=== PATIENT | male | born 1995 | race Caucasian/White ===

== ENCOUNTER 2020-10-14 21:43 | Emergency (ER) | payer MEDICAID, SELFPAY ==
[2020-10-14 21:52] VITALS: BP 138/100; PULSE 109; RESP 18; TEMP 36.7; O2SAT 95; BMI 20.5
[2020-10-14 22:00] VITALS: BP 138/100; PULSE 109; RESP 18; TEMP 36.7; O2SAT 95
[2020-10-15] VITALS: RESP 15
[2020-10-15 00:37] LABS: Amphetamine Screen Urine Not Detected (Not Detect); Barbiturates, Urine Not Detected (Not Detect); Benzodiazepines Screen Urine Not Detected (Not Detect); Cannabinoid Screen Urine Not Detected (Not Detect); Cocaine Screen Urine Not Detected (Not Detect); Opiate Screen Urine POSITIVE (Not Detect); Phencyclidine Screen Urine Not Detected (Not Detect)
[2020-10-15 02:00] VITALS: RESP 15
[2020-10-15 04:00] VITALS: RESP 14
[2020-10-15 06:00] VITALS: RESP 14
--- NOTE | 2020-10-15 06:44 | ED_ITS ---
HPI - Psych General Chief Complaint: Psychiatric Symptoms Stated Complaint: SI Time Seen by Provider: 10/15/20 06:43 Source: patient Mode of arrival: ambulatory History of Present Illness HPI Narrative: This is a 25M with history of depression as a child and on medication, but has had no further medication or therapy. He denies any admissions for depression or prior suicidal thoughts. Patient states he has been progressively experiencing worsening depression until yesterday he fellt like he wanted to kill himself by jumping off of a bridge. He denies any inciting event or situation. Patient states he drinks alcohol and injects heroin. Related Data Allergies Allergy/AdvReac Type Severity Reaction Status Date / Time cephapirin [From Cefadyl] Allergy Unknown Verified 10/14/20 21:52 Review of Systems Review of Systems: Pertinent positives and negatives as stated in HPI and 10 pt ROS is otherwise negative. [facility] Past Medical History Source: nursing notes reviewed Medical History Anxiety Depression Social History Social History Alcohol intake: unknown Smoking Status: Unknown if ever smoked Use of substances other than those prescribed or required for medical reasons: Yes Substance Use Type: Heroin Advance Directives: No Physical Exam Vital Signs: Vital Signs: Last Vital Signs Temp 98.0 F 10/14/20 22:00 Pulse 109 H 10/14/20 22:00 Resp 14 10/15/20 06:00 BP 138/100 H 10/14/20 22:00 Pulse Ox 95 10/14/20 22:00 Body Mass Index 20.5 Reviewed all vital signs. GEN: NAD, well-nourished PULM: CTAB, no RRR CVS: RRR, no murmurs ABD: soft, non-tender, non-distended EXT: no edema or deformity PSYCH: Depressive mood, logical thought process Course Course Course Narrative: This is a 25M with history and clinical presentation consistent with depression and suicidal ideation. Signed out to Dr Conner with plan: f/u labs and BHN evaluation. MDM - Psych Restraints Face to Face Assessment: Face to Face Assessment: Current Situation: After assessment of the patient, a review of the pertinent medical record and a discussion with nursing staff, I feel the patient requires a restrain intervention. Reaction To: [] Medical Condition: [] Behavioral State: [] Continued Need: [] Lab Data Labs: Lab Results 10/15/20 Range/Units 00:00 Urine Opiates Screen POSITIVE H (Not Detect) Ur Barbiturates Screen Not Detected (Not Detect) Ur Phencyclidine Scrn Not Detected (Not Detect) Ur Amphetamines Screen Not Detected (Not Detect) U Benzodiazepines Scrn Not Detected (Not Detect) Urine Cocaine Screen Not Detected (Not Detect) U Marijuana (THC) Screen Not Detected (Not Detect)
--- NOTE | 2020-10-15 06:48 | PC.NURSE ---
[facility] received the fax
--- NOTE | 2020-10-15 07:29 | PC.NURSE ---
called n to see when they could come geraldine tang stated mid to late morning
[2020-10-15] MEDS: Nicotine 14 MG PATCH.TD24 TRANSDERMA (08:30)
[2020-10-15 11:27] VITALS: BP 122/88; PULSE 100
[2020-10-15] MEDS: cloNIDine HCL 0.1 MG TABLET PO (11:27)
--- NOTE | 2020-10-15 13:59 | MHC.RECOVSUP ---
? Reason for consult:Continuity of care o Current location: [address] o Identified substance use concern: Heroin - Withdrawal - Support ? Intervention o MAT started or to be started o Community resources provided o Harm reduction discussion ? Plan: o Referral to [facility] o Follow up tomorrow o Patient to follow up with [facility] after discharge ? Additional information: Discussed at length MAT and how he would be a good canidate for it. Spoke to the [facility] and they were going to try to get him [facility] here today. After he obtains [facility] he'll be referred upstairs.
[2020-10-15] MEDS: Buprenorphine/Naloxone 2/0.5mg FILM 1 FILM SUBLINGUAL (14:26)
--- NOTE | 2020-10-15 14:49 | MHC.RECOVRN ---
Recovery Support Note: 25 year old male presented to [facility] ED, ambulatory, on 10/14/20 at 2152 reporting SI to jump off a bridge. Pt reported heroin and alcohol use earlier in the afternoon. T/w spoke with pt regarding substance use and MOUD. Pt reports using heroin, 1-2 bundles daily, nasal. Pt reports last use at 1400 on 10/14/20. Pt reports heroin use x 4 months. Prior to heroin use, pt reports oxycodone, 2-3 30 mg tabs daily. Pt reports alcohol use, 2-4 nips every other day. Pt reports trying Suboxone in the past through [facility]. Pt was on 8 mg/2mg x 1 month ?about 2 or 3 months ago.? Pt denies other treatment. Pt interested in Suboxone through [facility]. Pt scoring 11 on COWS, Pily Michael NP, notified and ordered Suboxone 2mg/0.5 mg x 1 dose. Pt was seen by [facility] and cleared to discharge. Pt given t/w card and was provided with information regarding [facility] and will present as a [facility]. [facility] notified.
[2020-10-15] MEDS: Buprenorphine/Naloxone 4/1 mg FILM 1 FILM SUBLINGUAL (15:44)
[2020-10-15] MEDS: Naloxone HCl Nasal TAKE HOME 4 MG SPRAY NOSTRILALT (15:45)
--- NOTE | 2020-10-16 13:41 | MHC.RECOVRN ---
10/16/20 1341 T/w spoke with patient via phone call. Pt reports following up with [facility] this morning and it went well. Pt sounded very positive on the phone. Pt stated insurance was made active and needs to follow up with [facility] tomorrow to continue process of obtaining MOU[facility] and PCP. Pt was given prescriptions for comfort meds, including hydroxyzine, Zofran, and ibuprofen. Pt is hopeful that tomorrow he will receive Suboxone. Pt currently walking to a meeting in [place] and states I'm going to get some information and see how to get a sponsor. T/w informed pt to call if he needed further support.
== END 2020-10-15 16:20 | disposition home or self-care (01) ==
PROVIDERS: Emergency Provider Student in an Organized Health Care Education/Training Program
DX: F32.9 Major depressive disorder, single episode, unspecified (principal); Z79.899 Other long term (current) drug therapy; R45.851 Suicidal ideations; F11.90 Opioid use, unspecified, uncomplicated
CPT/HCPCS: 80307; 99285; J0572; J0573

== ENCOUNTER 2023-01-25 10:23 | Outpatient (REF) | payer MEDICAID, SELFPAY ==
--- NOTE | ~2023-01-25 | US_ITS ---
EXAMINATION: US THYROID CLINICAL INFORMATION: Thyrotoxicosis, hyperthyroid. COMPARISON: None available. TECHNIQUE: Linear transducer grayscale and color Doppler examination with attention to the region of the thyroid. FINDINGS: SIZE: Measurements of the thyroid lobes and nodules are given in sagittal, anteroposterior and transverse dimensions respectively. Right Thyroid Lobe: 5.2 x 1.5 x 1.8 cm, volume 6.9 mL. Parenchyma: The gland echotexture is homogeneous. Thyroid vascularity is normal. Left Thyroid Lobe: 4.9 x 1.4 x 1.3 cm, volume 4.6 mL. Parenchyma: The gland echotexture is homogeneous. Thyroid vascularity is normal. Isthmus: 0.12 cm in maximum AP dimension. Estimated total number of nodules greater than or equal to 1 cm: 0. Webbing Inspector nodules are described as follows: 1. Location: Right inferior. Size: 0.7 x 0.5 x 0.6 cm, volume 0.11 mL. Nodule characteristics: Composition: Solid (2). Echogenicity: Isoechoic (1). Shape: Not taller than wide (0). Margins: Smooth (0). Echogenic Foci: None (0). ACR TI-RADS total points: 3 ACR TI-RADS category: 3 NODES: No lymphadenopathy is seen in the tissue surrounding the thyroid gland. US/US thyroid IMPRESSION: Subcentimeter TR 3 thyroid nodule which does not meet criteria for follow-up. ACR TI-RADS RECOMMENDATION REFERENCE: Ultrasound-guided fine-needle aspiration, followup ultrasound, no further follow up. * TR1 (0 point) and TR2 (2 points): No FNA or follow up. * TR3 (3 points): FNA if more than or equal to 2.5 cm in maximum dimension, followup ultrasound in 1, 3 and 5 years if 1.5 to 2.4 cm in maximum dimension. * TR4 (4-6 points): FNA if more than or equal to 1.5 cm in maximum dimension, followup ultrasound in 1, 2, 3 and 5 years if 1 to 1.4 cm in maximum dimension. * TR5 (more than or equal to 7 points): FNA if more than or equal to 1 cm in maximum dimension, followup ultrasound every year for 5 years if 0.5 to 0.9 cm in maximum dimension. * TR3, TR4 or TR5 nodules that are below the size threshold for followup receive no follow up.
== END 2023-01-25 10:24 | disposition home or self-care (01) ==
LOC: HO.US 10:23
PROVIDERS: PCP Registered Nurse; Visit Provider Registered Nurse
DX: E05.90 Thyrotoxicosis, unspecified without thyrotoxic crisis or storm (principal)
CPT/HCPCS: 76536

== ENCOUNTER 2023-04-13 14:27 | Outpatient (REF) | payer MEDICAID, SELFPAY ==
[2023-04-13 18:25] LABS: T4 Thyroxine 6.5 ug/dL (4.5-12.0); TSH reflex Free T4 3.58 uIU/mL (0.32-4.0)
[2023-04-15 07:28] LABS: Triiodothyronine T3 Total 142 ng/dL (76-181)
== END 2023-04-13 14:28 | disposition home or self-care (01) ==
LOC: HO.HHCL 14:27
PROVIDERS: Visit Provider Internal Medicine
DX: E05.90 Thyrotoxicosis, unspecified without thyrotoxic crisis or storm (principal)
CPT/HCPCS: 36415; 84436; 84443; 84480

== ENCOUNTER 2023-05-10 12:24 | Outpatient (REF) | payer MEDICAID, SELFPAY ==
[2023-05-10 13:17] LABS: MANUAL DIFF FLAG NO
[2023-05-10 13:44] LABS: Basophils Absolute Auto 0.1 X10*3/uL (0.0-0.2); Basophils Percent Auto 0.6 % (0-2); Eosinophils Absolute Auto 0.1 X10*3/uL (0.0-0.4); Hematocrit 39.6 % (42.0-52.0); Hemoglobin 13.6 g/dl (14.0-18.0); Imm Gran Abs Auto 0.03 X10*3/uL (0.00-0.03); Imm Gran Pct Auto 0.3 % (0.0-0.4); Lymphocytes Absolute Auto 1.8 X10*3/uL (1.2-4.9); Lymphocytes Percent Auto 17.6 % (20-40); Mean Corpuscular HGB Conc 34.3 g/dl (31.0-36.0); Mean Corpuscular Hemoglobin 29.4 pg (27.0-33.0); Mean Corpuscular Volume 85.7 fL (80.0-98.0); Mean Platelet Volume 10.1 fL (9.4-12.4); Monocytes Absolute Auto 0.8 X10*3/uL (0.1-1.2); Neutrophils Absolute Auto 7.6 x10*3/uL (2.0-8.3); Neutrophils Percent Auto 72.5 % (45-73); Platelet Count 430 X10*3/uL (160-400); Red Blood Count 4.62 X10*6/uL (4.60-5.80); Red Cell Distribution Width 12.3 % (11.0-16.0); White Blood Count 10.5 X10*3/uL (4.8-10.8)
[2023-05-10 14:48] LABS: Alanine Aminotransferase 22 U/L (0-40); Albumin Level 4.6 g/dL (3.5-5.0); Alkaline Phosphatase 67 U/L (39-117); Anion Gap 13 (12-20); Aspartate Amino Transferase 32 U/L (5-37); Bilirubin Total 0.6 mg/dL (0.0-1.0); Blood Urea Nitrogen 8 mg/dL (9-16); Calcium 9.7 mg/dL (8.4-10.2); Carbon Dioxide 28 mmol/L (22-29); Chloride 96 mmol/L (96-108); Estimated Glomerular Filt Rate > 60; Glucose Random 112 mg/dL (60-115); Potassium 3.2 mmol/L (3.3-5.1); Sodium 134 mmol/L (135-145); Total Protein 7.6 g/dL (6.5-8.0)
[2023-05-10 14:52] LABS: TSH reflex Free T4 1.13 uIU/mL (0.32-4.0)
[2023-05-14 20:19] LABS: Metanephrine, Free 24U 256 mcg/24 h (25-222); Normetanephrine, Free 24U 444 mcg/24 h (40-412); Total Metanephrine, Free 24U 700 mcg/24 h (94-604); Total Volume 24U 525 mL
[2023-05-17 11:09] LABS: CATF, 24 Ur Volume 525 mL; CATF-24Ur Creatinine 0.92 g/24 h (0.50-2.15); Catecholamines,Tot. (E+NE) 24U 83 mcg/24 h (26-121); Dopamine, 24 Ur 65 mcg/24 h (52-480); Epinephrine, 24 Ur 24 mcg/24 h (2-24); Norepinephrine, 24 Ur 59 mcg/24 h (15-100)
== END 2023-05-10 12:25 | disposition home or self-care (01) ==
LOC: HO.HHCL 12:24
PROVIDERS: Visit Provider Registered Nurse
DX: I10 Essential (primary) hypertension (principal); R11.2 Nausea with vomiting, unspecified
CPT/HCPCS: 36415; 80053; 82384; 83835; 84443; 85025